=== PATIENT | female | born 1950 | race Hispanic/Latino ===

== ENCOUNTER → 2022-05-19 | Day surgery (SDC) | payer OTHER ==
--- NOTE | 2022-05-19 12:37 | RAD REPORT ---
EXAM DESCRIPTION: Ultrasound-guided vacuum assisted left breast core biopsy CLINICAL HISTORY: Breast mass R92.2 COMPARISON: No comparisons FINDINGS: Informed consent was obtained and time-out was performed. The patient's left breast was prepped and draped in the usual sterile fashion. 1% lidocaine was used for local anesthetic purposes. Utilizing aseptic technique and ultrasound guidance, a 12 gauge vacuum assisted core biopsy device wa s used to obtain 2 core specimens through the mass of interest. The mass measures approximately 3.4 c m in maximum dimension and is located along the inferior mammary fold posteriorly at the 6 o'clock po sition. There is suspicion for skin involvement as well as probable involvement of the pectoralis mus alpesh. A post biopsy clip was then placed. All collected material was sent for cytology. Patient tolerated procedure well. IMPRESSION: Successful ultrasound guided vacuum assisted left breast mass biopsy. Please note pre-biopsy ultrasound raises suspicion for both skin involvement as well as pectoralis mu scle involvement.
== END ==
LOC: DS 10:03
PROVIDERS: ATTEND Obstetrics & Gynecology
DX: C50.812 Malignant neoplasm of overlapping sites of left female breast (principal); Z17.0 Estrogen receptor positive status [ER+]
CPT/HCPCS: 19083; 88305

== ENCOUNTER 2022-06-03 05:26 | Day surgery (SDC) | payer OTHER ==
[2022-06-02 15:26] LABS: Absolute Lymphocytes (CBC) 2.1 K/uL (0.7-4.9); Hematocrit 33.1 % (36.0-45.0); Lymphocytes % 36.9 % (15.3-44.8); MCV 64.3 fL (80-100); MPV 8.3 fL (7.6-11.3); RBC Red Blood Cell Count 5.15 M/uL (3.86-4.86)
[2022-06-02 15:30] LABS: Blood Morphology Comment NOTED (NOT SEEN); Hypochromasia 1+; Platelet Estimate ADEQ; White Blood Cell Scan OK (OK)
--- NOTE | 2022-06-02 15:40 | RAD REPORT ---
EXAM DESCRIPTION: RAD - Chest Pa And Lat (2 Views) - 06/02/2022 3:31 pm CLINICAL HISTORY: preop for surgery Chest pain. COMPARISON: No comparisons FINDINGS: Mild interstitial pulmonary edema. The heart is upper limit normal in size. No displaced f ractures. IMPRESSION: Mild CHF is possible.
[2022-06-02 15:47] LABS: Potassium 4.3 mmol/L (3.5-5.1)
[2022-06-03] MEDS ORDERED: NA CHLORIDE 0.9% 1,000 ML ONE (06:00)
[2022-06-03] MEDS ORDERED: MIDAZOLAM HCL 2 MG/2 ML INJ ONE ×2 (06:15→09:25)
[2022-06-03] MEDS ORDERED: FENTANYL CITR 100 MCG/2 ML ONE ×2 (06:15→09:27)
[2022-06-03] MEDS ORDERED: dexAMETHasone 4 MG/ML VIAL ONE ×2 (06:15→09:53)
[2022-06-03] MEDS ORDERED: LIDOCAINE 2% MPF 5 ML VIAL ONE ×2 (06:15→09:28)
[2022-06-03] MEDS ORDERED: CELECOXIB 100 MG CAPSULE ONE (06:16)
[2022-06-03] MEDS ORDERED: BUPIVACAINE 0.25% PF 30 ML VIAL ONE (06:16)
[2022-06-03] MEDS ORDERED: ACETAMINOPHEN 500 MG TAB ONE (06:16)
[2022-06-03] MEDS ORDERED: propofoL 200 MG/20 ML VIAL IV ONE ×2 (06:22→09:25)
--- NOTE | 2022-06-03 08:46 | RAD REPORT ---
EXAM DESCRIPTION: NM - Lymphoscintigraphy - 06/03/2022 7:39 am CLINICAL HISTORY: LEFT BREAST SENTINAL NODE COMPARISON: Chest Pa And Lat (2 Views) dated 06/02/2022 FINDINGS: Preoperative lymphoscintigraphy was performed. 2 intradermal periareolar injections were m jared of total 264 microcuries lymphoseek. Immediate scintigraphic show good localization of radiopharm aceutical. There is evidence of some early accumulation of radiopharmaceutical in the left axilla, pr esumably within a lymph node.
[2022-06-03] MEDS ORDERED: METHYLENE BLUE 0.5% 10 ML AMP ONE (09:21)
[2022-06-03] MEDS ORDERED: ONDANSETRON 4 MG/2 ML VIAL ONE (09:29)
[2022-06-03] MEDS ORDERED: ROCURONIUM 50 MG/5 ML VIAL IV ONE (09:29)
[2022-06-03] MEDS: CEFAZOLIN SODIUM 1 GM/VIAL ONE ×2 (09:33→10:08)
[2022-06-03] MEDS ORDERED: EPHEDRINE SULF 50 MG/ML VIAL ONE (10:44)
[2022-06-03] MEDS ORDERED: KETOROLAC 30 MG/ML INJ ONE (11:50)
--- NOTE | 2022-06-03 11:51 | P.BOP ---
Preoperative diagnosis: left breast infiltrating ductal carcinoma Postoperative diagnosis: same Primary procedure: LEft modified radical mastectomy Estimated blood loss: <50cc Specimen: breast with axillary lymphnodes Findings: unable to accurately pinpoint sentinel LN. Axillary dissection done Anesthesia: General Complications: None Drain(s): RACHEL drain Transferred to: Recovery Room Condition: Good
--- NOTE | 2022-06-03 13:04 | EKG ---
Test Date: 2022-06-02 Test Time: 15:09:13 Meteorology Professor: CHARLES MEASUREMENT RESULTS: Intervals: Rate: 66 CA: 142 QRSD: 88 QT: 380 QTc: 398 [place]: P: 66 CA: 142 QRS: 45 T: 60 INTERPRETIVE STATEMENTS: Normal sinus rhythm Normal ECG No previous ECG available for comparison Electronically Signed On 06-03-22 13:03:04 CANTEEN MANAGER by Sam Jain
[2022-06-03 13:55] VITALS: BP 115/56; TEMP 97.4; O2SAT 97
== END 2022-06-03 13:50 | disposition home or self-care (01) ==
LOC: OR 05:26
PROVIDERS: ATTEND Surgery
PROC: 07T60ZZ Resection of Left Axillary Lymphatic, Open Approach (ICD-10-PCS; 2022-06-03)
PROC: 0HTU0ZZ Resection of Left Breast, Open Approach (ICD-10-PCS; principal; 2022-06-03 08:45)
DX: C50.912 Malignant neoplasm of unspecified site of left female breast (principal); Z17.0 Estrogen receptor positive status [ER+]
CPT/HCPCS: 19307; 93005; 85025; 80048; 36415; 82947 ×2; 88307; 71046; 78195; J2704 ×2; J1100 ×2; J2001 ×2; J2250; J3010 ×2; J2405; J7030; J0690; A9520